=== PATIENT | male | born 1995 | race Caucasian/White ===

== ENCOUNTER 2017-12-23 09:22 | Emergency (ER) | payer OTHER, SELFPAY ==
--- NOTE | 2017-12-23 | DI.CT.S_ITS ---
PROCEDURE: CT ABDOMEN PELVIS W CON INDICATIONS: ABDOMINAL PAIN TECHNIQUE: After the administration of intravenous contrast, 5 mm thick sections acquired from the diaphragm to the symphysis. 5 mm coronal and sagittal reformats were acquired. For radiation dose reduction, the following was used: automated exposure control, adjustment of mA and/or kV according to patient size. COMPARISON: None. FINDINGS: Image quality: Excellent. ABDOMEN: Lung bases: Lung bases are clear. Heart size is normal. Solid organs: Liver is normal in size and enhancement. Gallbladder is unremarkable. Biliary system is non dilated. Pancreas enhances normally. Spleen is normal in size and enhancement. No adrenal nodules. Kidneys demonstrate normal size and enhancement, without hydronephrosis. Peritoneum and bowel: Bowel loops demonstrate normal wall thickness and caliber. The appendix is thin walled and gas filled. No free fluid or air. Nodes and vessels: No retroperitoneal or mesenteric adenopathy by size criteria. Aorta and inferior vena cava are normal in size. Miscellaneous: No ventral hernias. PELVIS: Genitourinary: Bladder wall thickness is normal. Miscellaneous: No inguinal hernias or adenopathy. Bones: No suspicious bony lesions. No vertebral body compression fractures. IMPRESSION: 1. No acute intra-abdominal findings. Normal appendix. Dictated by: Amrita Mclaughlin M.D. on 12/23/2017 at 13:58 Approved by: Amrita Mclaughlin M.D. on 12/23/2017 at 14:01
[2017-12-23 09:45] VITALS: BP 127/76; PULSE 57; RESP 18; TEMP 37; O2SAT 100; BMI 29.2
[2017-12-23 10:10] LABS: Add Manual Diff / Slide Review NO; Basophils Percent Auto 0.3 % (0-2); Hematocrit 43.6 % (41-53); Hemoglobin 14.9 g/dL (13.5-17.5); Lymphocytes Percent Auto 11.2 % (25-40); Mean Corpuscular HGB Conc 34.1 % (30-36); Mean Corpuscular Hemoglobin 31.2 PG (26-34); Mean Corpuscular Volume 91.6 fL (80-100); Monocytes Percent Auto 6.9 % (3-14); Neutrophils Absolute Auto 12000 /uL (3000-5900); Neutrophils Percent Auto 81.6 % (50-75); Platelet Count 293 X10^3/uL (150-400); Red Blood Cell Count 4.76 X10^6/uL (4.5-5.9); Red Cell Distribution Width 13.7 % (11.6-14.8); White Blood Cell Count 14.7 X10^3/uL (4.5-11.0)
[2017-12-23 10:20] LABS: Alanine Aminotransferase 20 IU/L (21-72); Albumin 4.7 g/dL (3.5-5.0); Albumin Globulin Ratio 1.4 (1.0-2.8); Alkaline Phosphatase 77 U/L (38-126); Aspartate Aminotransferase 19 IU/L (17-59); BUN Creatinine Ratio 16.3 (6-22); Bilirubin Total 0.8 mg/dL (0.2-1.3); Blood Urea Nitrogen 13 mg/dL (9-20); Calcium 9.6 mg/dL (8.4-10.2); Carbon Dioxide 27 mmol/L (22-32); Chloride 104 mmol/L (98-107); Estimated Glomerular Filt Rate > 60.0 mL/min (>60); Globulin 3.3 g/dL (1.7-4.1); Glucose 112 mg/dL (70-100); HEMOLYSIS 15 (0-50); Lipase 71 U/L (23-300); Potassium 3.3 mmol/L (3.4-5.1); Sodium 145 mmol/L (137-145)
[2017-12-23 10:54] VITALS: BP 117/77; PULSE 49; RESP 15; O2SAT 100
[2017-12-23] MEDS: ONDANSETRON 4 MG/2 ML INJ IV ×2 (11:13→15:21)
[2017-12-23] MEDS: SODIUM CHLORIDE 0.9% 1,000 ML 1000 ML IV (11:13)
[2017-12-23 12:00] VITALS: BP 99/58; PULSE 59; O2SAT 98
--- NOTE | 2017-12-23 12:21 | ED.ABDPAIN ---
HPI - Abdominal Pain <MASTER Chakraborty-BC - Last Filed: 12/23/17 15:45> General Chief Complaint: Abdominal Pain Stated Complaint: vomitting, stomach pain Time Seen by Provider: 12/23/17 12:10 Source: patient Mode of arrival: ambulatory Limitations: no limitations History of Present Illness HPI narrative: Patient presents with chief complaint of abdominal pain. It has been going on since . He also complains of chills, but no objective fevers. He complains of nausea and vomiting. He denies any diarrhea or constipation. Last movement was this morning. He denies any chest pain, shortness of breath. He states he is dehydrated. He states that this happened before in August, and that he follow up with his primary care provider. He states that his primary care provider discussed referring him to GI, and he has not contacted them again. He complains of of aching, pressure pain in his lower right quadrant and just below his umbilicus. He rates the pain a 4/10. He denies any urinary symptoms. Related Data Home Medications Medication Instructions Recorded Confirmed calcium carbonate [Tums] #0 06/06/17 promethazine 25 mg PO Q4HP PRN #0 06/08/17 Previous Rx's Medication Instructions Recorded ondansetron [Zofran ODT] 4 mg SUBLINGUAL Q6HP PRN #10 odt 06/05/17 ondansetron 4 mg PO TID PRN #10 tab 12/23/17 Allergies Allergy/AdvReac Type Severity Reaction Status Date / Time No Known Allergies Allergy Uncoded 07/18/17 12:11 Review of Systems <MADAN Chakraborty - Last Filed: 12/23/17 15:45> Review of Systems GENERAL: See HPI HEENT: Denies sinus pain, ear pain, sore throat, difficulty swallowing, dizziness. RESPIRATORY: Denies dyspnea, cough, wheezing, hemoptysis, sputum. CARDIOVASCULAR: Denies chest pain, palpitations, orthopnea, edema, GASTROINTESTINAL: See HPI : Denies dysuria, frequency, incontinence, hematuria, urinary retention. MUSCULOSKELETAL: denies weakness, joint pain, or bony pain SKIN: Denies rash, skin lesions, or other NEUROLOGIC: Denies weakness, headache, numbness, change in speech, confusion, seizures, incoordination. PSYCHIATRIC: No concerning psychosocial issues. 12 point review of systems is negative except for those stated above Exam <MADAN Chakraborty - Last Filed: 12/23/17 15:45> Narrative Exam Narrative: GENERAL: This is a well-nourished, well-developed patient, lying in bed covered in a blanket. HEAD: Atraumatic. Normocephalic. No temporal or scalp tenderness. EYES: Pupils equal round and reactive. Extraocular motions intact. No scleral icterus. No injection or drainage. ENT: Nose without bleeding, purulent drainage or septal hematoma. Throat without erythema, tonsillar hypertrophy or exudate. Uvula midline. Airway patent. NECK: Trachea midline. No JVD or lymphadenopathy. Supple, nontender, no meningeal signs. CARDIOVASCULAR: Regular rate and rhythm without murmurs, gallops, or rubs. RESPIRATORY: Clear to auscultation. Breath sounds equal bilaterally. No wheezes, rales, or rhonchi. GASTROINTESTINAL: Abdomen soft, active bowel sounds all 4 quadrants. Noted to have some guarding in the right lower quadrant and mid gastric area. No palpable hepatosplenomegaly. EXTREMITIES: No clubbing, cyanosis, or edema. No joint tenderness, effusion, or edema noted. BACK: Nontender without deformity or crepitance. No flank tenderness. NEURO: AOx3. SKIN: No rash or erythema. Initial Vital Signs Initial Vital Signs: Vital Signs Temperature 98.6 F 12/23/17 09:45 Pulse Rate 57 L 12/23/17 09:45 Respiratory Rate 18 12/23/17 09:45 Blood Pressure 127/76 12/23/17 09:45 Pulse Oximetry 100 12/23/17 09:45 <Jaky Alaniz DO - Last Filed: 12/26/17 07:38> Initial Vital Signs Initial Vital Signs: Vital Signs Temperature 98.6 F 12/23/17 09:45 Pulse Rate 57 L 12/23/17 09:45 Respiratory Rate 12/23/17 09:45 Blood Pressure 127/76 12/23/17 09:45 Pulse Oximetry 100 12/23/17 09:45 Course <MADAN Chakraborty - Last Filed: 12/23/17 15:45> Additional Information: I checked on the patient and his girlfriend several times throughout his stay. Orders Ordered: Discontinued Medications Sodium Chloride (Normal Saline 0.9%) 1,000 mls @ 1,000 mls/hr IV BOLUS ONE Stop: 12/23/17 12:10 Last Infusion: 12/23/17 13:00 Dose: 0 mls/hr Admin: 12/23/17 11:13 Dose: 1,000 mls/hr Sodium Chloride (Normal Saline 0.9%) 500 mls @ 1,000 mls/hr IV BOLUS ONE Stop: 12/23/17 12:46 Last Infusion: 12/23/17 13:41 Dose: 0 mls/hr Admin: 12/23/17 13:00 Dose: 1,000 mls/hr Ondansetron HCl (Zofran) 4 mg IV NOW ONE Stop: 12/23/17 11:13 Last Admin: 12/23/17 11:13 Dose: 4 mg Ondansetron HCl (Zofran) 4 mg IV NOW ONE Stop: 12/23/17 15:20 Last Admin: 12/23/17 15:21 Dose: 4 mg Potassium Chloride (Klor-Con M20) 40 meq PO NOW ONE Stop: 12/23/17 15:33 Last Admin: 12/23/17 15:30 Dose: 40 meq Vital Signs - 8 hr 12/23/17 09:45 12/23/17 10:54 12/23/17 12:00 Temperature 98.6 F Pulse Rate 57 L 49 L 59 L Respiratory Rate 18 15 Blood Pressure 127/76 Blood Pressure [Left Arm] 117/77 99/58 L Pulse Oximetry 100 100 98 12/23/17 13:13 12/23/17 14:45 Temperature Pulse Rate 49 L 48 L Respiratory Rate 16 Blood Pressure Blood Pressure [Left Arm] 114/70 122/70 Pulse Oximetry 97 98 <Jaky Alaniz DO - Last Filed: 12/26/17 07:38> Orders Ordered: Discontinued Medications Sodium Chloride (Normal Saline 0.9%) 1,000 mls @ 1,000 mls/hr IV BOLUS ONE Stop: 12/23/17 12:10 Last Infusion: 12/23/17 13:00 Dose: 0 mls/hr Admin: 12/23/17 11:13 Dose: 1,000 mls/hr Sodium Chloride (Normal Saline 0.9%) 500 mls @ 1,000 mls/hr IV BOLUS ONE Stop: 12/23/17 12:46 Last Infusion: 12/23/17 13:41 Dose: 0 mls/hr Admin: 12/23/17 13:00 Dose: 1,000 mls/hr Ondansetron HCl (Zofran) 4 mg IV NOW ONE Stop: 12/23/17 11:13 Last Admin: 12/23/17 11:13 Dose: 4 mg Ondansetron HCl (Zofran) 4 mg IV NOW ONE Stop: 12/23/17 15:20 Last Admin: 12/23/17 15:21 Dose: 4 mg Potassium Chloride (Klor-Con M20) 40 meq PO NOW ONE Stop: 12/23/17 15:33 Last Admin: 12/23/17 15:30 Dose: 40 meq Vital Signs - 8 hr 12/23/17 09:45 12/23/17 10:54 12/23/17 12:00 Temperature 98.6 F Pulse Rate 57 L 49 L 59 L Respiratory Rate 18 15 Blood Pressure 127/76 Blood Pressure [Left Arm] 117/77 99/58 L Pulse Oximetry 100 100 98 12/23/17 13:13 12/23/17 14:45 Temperature Pulse Rate 49 L 48 L Respiratory Rate 16 Blood Pressure Blood Pressure [Left Arm] 114/70 122/70 Pulse Oximetry 97 98 MDM - Abdominal Pain <MADAN Chakraborty - Last Filed: 12/23/17 15:45> Differential Diagnosis Differential diagnosis: Likely abdominal pain, acute appendicitis, diverticulitis and gastroenteritis Lab Data Attestation: I reviewed the patient's lab results. Result diagrams: 12/23/17 10:00 12/23/17 10:00 Lab Results 12/23/17 12/23/17 12/23/17 Range/Units 10:00 10:00 10:00 WBC 14.7 H (4.5-11.0) X10^3/uL RBC 4.76 (4.5-5.9) X10^6/uL Hgb 14.9 (13.5-17.5) g/dL Hct 43.6 (41-53) % MCV 91.6 (80-100) fL MCH 31.2 (26-34) PG MCHC 34.1 (30-36) % RDW 13.7 (11.6-14.8) % Plt Count 293 (150-400) X10^3/uL Neut % (Auto) 81.6 H (50-75) % Lymph % (Auto) 11.2 L (25-40) % [place] % (Auto) 6.9 (3-14) % Eos % (Auto) 0.0 L (2-4) % Baso % (Auto) 0.3 (0-2) % Neut # (Auto) 08571 H (4728-8149) /uL PT 13.7 H (10.1-12.7) SECONDS INR 1.3 (0.9-1.3) APTT 31 (26.4-36.2) SECONDS Sodium 145 (137-145) mmol/L Potassium 3.3 L (3.4-5.1) mmol/L Chloride 104 (98-107) mmol/L Carbon Dioxide 27 (22-32) mmol/L BUN 13 (9-20) mg/dL Creatinine 0.80 (0.66-1.25) mg/dL Estimated GFR > 60.0 (>60) mL/min BUN/Creatinine Ratio 16.3 (6-22) Glucose 112 H (70-100) mg/dL Calcium 9.6 (8.4-10.2) mg/dL Total Bilirubin 0.8 (0.2-1.3) mg/dL AST 19 (17-59) IU/L ALT 20 L (21-72) IU/L Alkaline Phosphatase 77 (38-126) U/L Total Protein 8.0 (6.3-8.2) g/dL Albumin 4.7 (3.5-5.0) g/dL Globulin 3.3 (1.7-4.1) g/dL Albumin/Globulin Ratio 1.4 (1.0-2.8) Amylase (30-110) U/L Lipase 71 (23-300) U/L Urine RBC (0-5/HPF) Urine WBC (0-5/HPF) Ur Squamous Epith Cells Urine Bacteria (None) Ur Culture Indicated? Micro UA Comment 12/23/17 12/23/17 Range/Units 10:00 14:30 WBC (4.5-11.0) X10^3/uL RBC (4.5-5.9) X10^6/uL Hgb (13.5-17.5) g/dL Hct (41-53) % MCV (80-100) fL MCH (26-34) PG MCHC (30-36) % RDW (11.6-14.8) % Plt Count (150-400) X10^3/uL Neut % (Auto) (50-75) % Lymph % (Auto) (25-40) % [place] % (Auto) (3-14) % Eos % (Auto) (2-4) % Baso % (Auto) (0-2) % Neut # (Auto) (0523-2970) /uL PT (10.1-12.7) SECONDS INR (0.9-1.3) APTT (26.4-36.2) SECONDS Sodium (137-145) mmol/L Potassium (3.4-5.1) mmol/L Chloride (98-107) mmol/L Carbon Dioxide (22-32) mmol/L BUN (9-20) mg/dL Creatinine (0.66-1.25) mg/dL Estimated GFR (>60) mL/min BUN/Creatinine Ratio (6-22) Glucose (70-100) mg/dL Calcium (8.4-10.2) mg/dL Total Bilirubin (0.2-1.3) mg/dL AST (17-59) IU/L ALT (21-72) IU/L Alkaline Phosphatase (38-126) U/L Total Protein (6.3-8.2) g/dL Albumin (3.5-5.0) g/dL Globulin (1.7-4.1) g/dL Albumin/Globulin Ratio (1.0-2.8) Amylase 63 (30-110) U/L Lipase (23-300) U/L Urine RBC None seen (0-5/HPF) Urine WBC None seen (0-5/HPF) Ur Squamous Epith Cells 0-1 /hpf Urine Bacteria None seen (None) Ur Culture Indicated? Cult not indicated Micro UA Comment Microscopic normal Potassium replaced with 40 mEq p.o. Point of care testing: Urine Dip Bedside Urine Glucose Negative Bedside Urine Bilirubin - Negative Bedside Urine Ketone ++ 40 Urine Specific [place] 1.010 Bedside Urine Occult Blood - Negative Bedside Urine pH 7.5 Bedside Urine Protein +/- 15 Bedside Urine Urobilinogen +/- 1mg Bedside Urine Nitrite - Negative Bedside Urine Leukocytes - Negative Esterase Imaging Data CT scan - abdomen: Radiologist's impression: [address] [address] [address] Scan Report Signed Patient: Catracho Tan MR#: [id number] : 1995 Acct:[id number] Age/Sex: 22 / M Date of Service: 12/23/17 Loc: ED Accession Number: [id number] Procedure: CT abdomen pelvis wo con Ordering Provider: Jaky Burciaga- PROCEDURE: CT ABDOMEN PELVIS W CON INDICATIONS: ABDOMINAL PAIN TECHNIQUE: After the administration of intravenous contrast, 5 mm thick sections acquired from the diaphragm to the symphysis. 5 mm coronal and sagittal reformats were acquired. For radiation dose reduction, the following was used: automated exposure control, adjustment of mA and/or kV according to patient size. COMPARISON: None. FINDINGS: Image quality: Excellent. ABDOMEN: Lung bases: Lung bases are clear. Heart size is normal. Solid organs: Liver is normal in size and enhancement. Gallbladder is unremarkable. Biliary system is non dilated. Pancreas enhances normally. Spleen is normal in size and enhancement. No adrenal nodules. Kidneys demonstrate normal size and enhancement, without hydronephrosis. Peritoneum and bowel: Bowel loops demonstrate normal wall thickness and caliber. The appendix is thin walled and gas filled. No free fluid or air. Nodes and vessels: No retroperitoneal or mesenteric adenopathy by size criteria. Aorta and inferior vena cava are normal in size. Miscellaneous: No ventral hernias. PELVIS: Genitourinary: Bladder wall thickness is normal. Miscellaneous: No inguinal hernias or adenopathy. Bones: No suspicious bony lesions. No vertebral body compression fractures. IMPRESSION: 1. No acute intra-abdominal findings. Normal appendix. Dictated by: Amrita Mclaughlin M.D. on 12/23/2017 at 13:58 Approved by: Amrita Mclaughlin M.D. on 12/23/2017 at 14:01 MDM Narrative Medical decision making narrative: The patient presents with a chief complaint of abdominal pain and nausea vomiting. Basic lab work was sent off, which is grossly normal. His potassium level slightly low, which was replaced in the emergency department. Given his pain and slight guarding on exam, I did obtain a CT scan. This came back within normal limits. He does have a history of abdominal pain, for which he has not followed up with GI. I encouraged him to follow up with his primary care provider in the next few days and as well as gave him precautions to come back to the emergency department including inability keep down liquids, sudden changes and pain or acute concerns. I encouraged and easy to digest I gave him a prescription of Zofran. He had no questions or concerns upon discharge. <Jaky Alaniz, DO - Last Filed: 12/26/17 07:38> Lab Data Lab Results 12/23/17 12/23/17 12/23/17 Range/Units 10:00 10:00 10:00 WBC 14.7 H (4.5-11.0) X10^3/uL RBC 4.76 (4.5-5.9) X10^6/uL Hgb 14.9 (13.5-17.5) g/dL Hct 43.6 (41-53) % MCV 91.6 (80-100) fL MCH 31.2 (26-34) PG MCHC 34.1 (30-36) % RDW 13.7 (11.6-14.8) % Plt Count 293 (150-400) X10^3/uL Neut % (Auto) 81.6 H (50-75) % Lymph % (Auto) 11.2 L (25-40) % [place] % (Auto) 6.9 (3-14) % Eos % (Auto) 0.0 L (2-4) % Baso % (Auto) 0.3 (0-2) % Neut # (Auto) 08318 H (6773-7406) /uL PT 13.7 H (10.1-12.7) SECONDS INR 1.3 (0.9-1.3) APTT 31 (26.4-36.2) SECONDS Sodium 145 (137-145) mmol/L Potassium 3.3 L (3.4-5.1) mmol/L Chloride 104 (98-107) mmol/L Carbon Dioxide 27 (22-32) mmol/L BUN 13 (9-20) mg/dL Creatinine 0.80 (0.66-1.25) mg/dL Estimated GFR > 60.0 (>60) mL/min BUN/Creatinine Ratio 16.3 (6-22) Glucose 112 H (70-100) mg/dL Calcium 9.6 (8.4-10.2) mg/dL Total Bilirubin 0.8 (0.2-1.3) mg/dL AST 19 (17-59) IU/L ALT 20 L (21-72) IU/L Alkaline Phosphatase 77 (38-126) U/L Total Protein 8.0 (6.3-8.2) g/dL Albumin 4.7 (3.5-5.0) g/dL Globulin 3.3 (1.7-4.1) g/dL Albumin/Globulin Ratio 1.4 (1.0-2.8) Amylase (30-110) U/L Lipase 71 (23-300) U/L Urine RBC (0-5/HPF) Urine WBC (0-5/HPF) Ur Squamous Epith Cells Urine Bacteria (None) Ur Culture Indicated? Micro UA Comment 12/23/17 12/23/17 Range/Units 10:00 14:30 WBC (4.5-11.0) X10^3/uL RBC (4.5-5.9) X10^6/uL Hgb (13.5-17.5) g/dL Hct (41-53) % MCV (80-100) fL MCH (26-34) PG MCHC (30-36) % RDW (11.6-14.8) % Plt Count (150-400) X10^3/uL Neut % (Auto) (50-75) % Lymph % (Auto) (25-40) % [place] % (Auto) (3-14) % Eos % (Auto) (2-4) % Baso % (Auto) (0-2) % Neut # (Auto) (8274-8996) /uL PT (10.1-12.7) SECONDS INR (0.9-1.3) APTT (26.4-36.2) SECONDS Sodium (137-145) mmol/L Potassium (3.4-5.1) mmol/L Chloride (98-107) mmol/L Carbon Dioxide (22-32) mmol/L BUN (9-20) mg/dL Creatinine (0.66-1.25) mg/dL Estimated GFR (>60) mL/min BUN/Creatinine Ratio (6-22) Glucose (70-100) mg/dL Calcium (8.4-10.2) mg/dL Total Bilirubin (0.2-1.3) mg/dL AST (17-59) IU/L ALT (21-72) IU/L Alkaline Phosphatase (38-126) U/L Total Protein (6.3-8.2) g/dL Albumin (3.5-5.0) g/dL Globulin (1.7-4.1) g/dL Albumin/Globulin Ratio (1.0-2.8) Amylase 63 (30-110) U/L Lipase (23-300) U/L Urine RBC None seen (0-5/HPF) Urine WBC None seen (0-5/HPF) Ur Squamous Epith Cells 0-1 /hpf Urine Bacteria None seen (None) Ur Culture Indicated? Cult not indicated Micro UA Comment Microscopic normal Point of care testing: Urine Dip Bedside Urine Glucose Negative Bedside Urine Bilirubin - Negative Bedside Urine Ketone ++ 40 Urine Specific [place] 1.010 Bedside Urine Occult Blood - Negative Bedside Urine pH 7.5 Bedside Urine Protein +/- 15 Bedside Urine Urobilinogen +/- 1mg Bedside Urine Nitrite - Negative Bedside Urine Leukocytes - Negative Esterase Discharge Plan Departure Patient Disposition: Home Clinical Impression: Nausea and vomiting, Abdominal pain Discharge Date/Time: 12/23/17 15:58 Interventions: ED Discharge Assessment Last Done: 12/23/17 15:57 Instructions: DI for Abdominal Pain-Adult, DI for Vomiting -- Adult, Nausea and Vomiting-Adult Activity Restrictions/Additional Instructions: Your imaging came back normal today. Please follow-up with your primary care provider. Please eat simple foods, take the nausea medication as needed, and push fluids. Come back to the emergency department if needed including unable to keep down fluids, severe fever, severe abdominal pain chest pain shortness of breath. Prescriptions: New ondansetron 4 mg tablet,disintegrating 4 mg PO TID PRN (Reason: nausea and vomiting) Qty: 10 RF: 0 No Action ondansetron [Zofran ODT] 4 MG tablet,disintegrating 4 mg Sublingual Q6HP PRNQty: 10 RF: 0 calcium carbonate [Tums] 500 MG tablet,chewable Qty: 0 RF: 0 promethazine 25 MG tablet 25 mg PO Q4HP PRNQty: 0 RF: 0 Referrals: Rodolfo Kidd DO [Primary Care Provider] - Stand Alone Forms: Work/School Restrictions <Jaky Alaniz DO - Last Filed: 12/26/17 07:38> Cosign ED Attending Cosignature Attestation: I was immediately available in the department for consultation. This documentation has been reviewed and I agree with assessment and plan. Supervised by Jaky Alaniz DO
--- NOTE | 2017-12-23 12:25 | ED_ITS ---
HPI - Abdominal Pain <MASTER Chakraborty-BC - Last Filed: 12/23/17 15:45> General Chief Complaint: Abdominal Pain Stated Complaint: vomitting, stomach pain Time Seen by Provider: 12/23/17 12:10 Source: patient Mode of arrival: ambulatory Limitations: no limitations History of Present Illness HPI narrative: Patient presents with chief complaint of abdominal pain. It has been going on since . He also complains of chills, but no objective fevers. He complains of nausea and vomiting. He denies any diarrhea or constipation. Last movement was this morning. He denies any chest pain, shortness of breath. He states he is dehydrated. He states that this happened before in August, and that he follow up with his primary care provider. He states that his primary care provider discussed referring him to GI, and he has not contacted them again. He complains of of aching, pressure pain in his lower right quadrant and just below his umbilicus. He rates the pain a 4/10. He denies any urinary symptoms. Related Data Home Medications Medication Instructions Recorded Confirmed calcium carbonate [Tums] #0 06/06/17 promethazine 25 mg PO Q4HP PRN #0 06/08/17 Previous Rx's Medication Instructions Recorded ondansetron [Zofran ODT] 4 mg SUBLINGUAL Q6HP PRN #10 odt 06/05/17 ondansetron 4 mg PO TID PRN #10 tab 12/23/17 Allergies Allergy/AdvReac Type Severity Reaction Status Date / Time No Known Allergies Allergy Uncoded 07/18/17 12:11 Review of Systems <MADAN Chakraborty - Last Filed: 12/23/17 15:45> Review of Systems GENERAL: See HPI HEENT: Denies sinus pain, ear pain, sore throat, difficulty swallowing, dizziness. RESPIRATORY: Denies dyspnea, cough, wheezing, hemoptysis, sputum. CARDIOVASCULAR: Denies chest pain, palpitations, orthopnea, edema, GASTROINTESTINAL: See HPI : Denies dysuria, frequency, incontinence, hematuria, urinary retention. MUSCULOSKELETAL: denies weakness, joint pain, or bony pain SKIN: Denies rash, skin lesions, or other NEUROLOGIC: Denies weakness, headache, numbness, change in speech, confusion, seizures, incoordination. PSYCHIATRIC: No concerning psychosocial issues. 12 point review of systems is negative except for those stated above Exam <MADAN Chakraborty - Last Filed: 12/23/17 15:45> Narrative Exam Narrative: GENERAL: This is a well-nourished, well-developed patient, lying in bed covered in a blanket. HEAD: Atraumatic. Normocephalic. No temporal or scalp tenderness. EYES: Pupils equal round and reactive. Extraocular motions intact. No scleral icterus. No injection or drainage. ENT: Nose without bleeding, purulent drainage or septal hematoma. Throat without erythema, tonsillar hypertrophy or exudate. Uvula midline. Airway patent. NECK: Trachea midline. No JVD or lymphadenopathy. Supple, nontender, no meningeal signs. CARDIOVASCULAR: Regular rate and rhythm without murmurs, gallops, or rubs. RESPIRATORY: Clear to auscultation. Breath sounds equal bilaterally. No wheezes , rales, or rhonchi. GASTROINTESTINAL: Abdomen soft, active bowel sounds all 4 quadrants. Noted to have some guarding in the right lower quadrant and mid gastric area. No palpable hepatosplenomegaly. EXTREMITIES: No clubbing, cyanosis, or edema. No joint tenderness, effusion, or edema noted. BACK: Nontender without deformity or crepitance. No flank tenderness. NEURO: AOx3. SKIN: No rash or erythema. Initial Vital Signs Initial Vital Signs: Vital Signs Temperature 98.6 F 12/23/17 09:45 Pulse Rate 57 L 12/23/17 09:45 Respiratory Rate 18 12/23/17 09:45 Blood Pressure 127/76 12/23/17 09:45 Pulse Oximetry 100 12/23/17 09:45 <Jaky Alanzi DO - Last Filed: 12/26/17 07:38> Initial Vital Signs Initial Vital Signs: Vital Signs Temperature 98.6 F 12/23/17 09:45 Pulse Rate 57 L 12/23/17 09:45 Respiratory Rate 12/23/17 09:45 Blood Pressure 127/76 12/23/17 09:45 Pulse Oximetry 100 12/23/17 09:45 Course <MADAN Chakraborty - Last Filed: 12/23/17 15:45> Additional Information: I checked on the patient and his girlfriend several times throughout his stay. Orders Ordered: Discontinued Medications Sodium Chloride (Normal Saline 0.9%) 1,000 mls @ 1,000 mls/hr IV BOLUS ONE Stop: 12/23/17 12:10 Last Infusion: 12/23/17 13:00 Dose: 0 mls/hr Admin: 12/23/17 11:13 Dose: 1,000 mls/hr Sodium Chloride (Normal Saline 0.9%) 500 mls @ 1,000 mls/hr IV BOLUS ONE Stop: 12/23/17 12:46 Last Infusion: 12/23/17 13:41 Dose: 0 mls/hr Admin: 12/23/17 13:00 Dose: 1,000 mls/hr Ondansetron HCl (Zofran) 4 mg IV NOW ONE Stop: 12/23/17 11:13 Last Admin: 12/23/17 11:13 Dose: 4 mg Ondansetron HCl (Zofran) 4 mg IV NOW ONE Stop: 12/23/17 15:20 Last Admin: 12/23/17 15:21 Dose: 4 mg Potassium Chloride (Klor-Con M20) 40 meq PO NOW ONE Stop: 12/23/17 15:33 Last Admin: 12/23/17 15:30 Dose: 40 meq Vital Signs - 8 hr 12/23/17 09:45 12/23/17 10:54 12/23/17 12:00 Temperature 98.6 F Pulse Rate 57 L 49 L 59 L Respiratory Rate 18 15 Blood Pressure 127/76 Blood Pressure [Left Arm] 117/77 99/58 L Pulse Oximetry 100 100 98 12/23/17 13:13 12/23/17 14:45 Temperature Pulse Rate 49 L 48 L Respiratory Rate 16 Blood Pressure Blood Pressure [Left Arm] 114/70 122/70 Pulse Oximetry 97 98 <Jaky Alaniz DO - Last Filed: 12/26/17 07:38> Orders Ordered: Discontinued Medications Sodium Chloride (Normal Saline 0.9%) 1,000 mls @ 1,000 mls/hr IV BOLUS ONE Stop: 12/23/17 12:10 Last Infusion: 12/23/17 13:00 Dose: 0 mls/hr Admin: 12/23/17 11:13 Dose: 1,000 mls/hr Sodium Chloride (Normal Saline 0.9%) 500 mls @ 1,000 mls/hr IV BOLUS ONE Stop: 12/23/17 12:46 Last Infusion: 12/23/17 13:41 Dose: 0 mls/hr Admin: 12/23/17 13:00 Dose: 1,000 mls/hr Ondansetron HCl (Zofran) 4 mg IV NOW ONE Stop: 12/23/17 11:13 Last Admin: 12/23/17 11:13 Dose: 4 mg Ondansetron HCl (Zofran) 4 mg IV NOW ONE Stop: 12/23/17 15:20 Last Admin: 12/23/17 15:21 Dose: 4 mg Potassium Chloride (Klor-Con M20) 40 meq PO NOW ONE Stop: 12/23/17 15:33 Last Admin: 12/23/17 15:30 Dose: 40 meq Vital Signs - 8 hr 12/23/17 09:45 12/23/17 10:54 12/23/17 12:00 Temperature 98.6 F Pulse Rate 57 L 49 L 59 L Respiratory Rate 18 15 Blood Pressure 127/76 Blood Pressure [Left Arm] 117/77 99/58 L Pulse Oximetry 100 100 98 12/23/17 13:13 12/23/17 14:45 Temperature Pulse Rate 49 L 48 L Respiratory Rate 16 Blood Pressure Blood Pressure [Left Arm] 114/70 122/70 Pulse Oximetry 97 98 MDM - Abdominal Pain <MADAN Chakraborty - Last Filed: 12/23/17 15:45> Differential Diagnosis Differential diagnosis: Likely abdominal pain, acute appendicitis, diverticulitis and gastroenteritis Lab Data Attestation: I reviewed the patient's lab results. Result diagrams: 12/23/17 10:00 12/23/17 10:00 Lab Results 12/23/17 12/23/17 12/23/17 Range/Units 10:00 10:00 10:00 WBC 14.7 H (4.5-11.0) X10^3/uL RBC 4.76 (4.5-5.9) X10^6/uL Hgb 14.9 (13.5-17.5) g/dL Hct 43.6 (41-53) % MCV 91.6 (80-100) fL MCH 31.2 (26-34) PG MCHC 34.1 (30-36) % RDW 13.7 (11.6-14.8) % Plt Count 293 (150-400) X10^3/uL Neut % (Auto) 81.6 H (50-75) % Lymph % (Auto) 11.2 L (25-40) % [place] % (Auto) 6.9 (3-14) % Eos % (Auto) 0.0 L (2-4) % Baso % (Auto) 0.3 (0-2) % Neut # (Auto) 42611 H (8628-9902) /uL PT 13.7 H (10.1-12.7) SECONDS INR 1.3 (0.9-1.3) APTT 31 (26.4-36.2) SECONDS Sodium 145 (137-145) mmol/L Potassium 3.3 L (3.4-5.1) mmol/L Chloride 104 (98-107) mmol/L Carbon Dioxide 27 (22-32) mmol/L BUN 13 (9-20) mg/dL Creatinine 0.80 (0.66-1.25) mg/dL Estimated GFR > 60.0 (>60) mL/min BUN/Creatinine Ratio 16.3 (6-22) Glucose 112 H (70-100) mg/dL Calcium 9.6 (8.4-10.2) mg/dL Total Bilirubin 0.8 (0.2-1.3) mg/dL AST 19 (17-59) IU/L ALT 20 L (21-72) IU/L Alkaline Phosphatase 77 (38-126) U/L Total Protein 8.0 (6.3-8.2) g/dL Albumin 4.7 (3.5-5.0) g/dL Globulin 3.3 (1.7-4.1) g/dL Albumin/Globulin Ratio 1.4 (1.0-2.8) Amylase (30-110) U/L Lipase 71 (23-300) U/L Urine RBC (0-5/HPF) Urine WBC (0-5/HPF) Ur Squamous Epith Cells Urine Bacteria (None) Ur Culture Indicated? Micro UA Comment 12/23/17 12/23/17 Range/Units 10:00 14:30 WBC (4.5-11.0) X10^3/uL RBC (4.5-5.9) X10^6/uL Hgb (13.5-17.5) g/dL Hct (41-53) % MCV (80-100) fL MCH (26-34) PG MCHC (30-36) % RDW (11.6-14.8) % Plt Count (150-400) X10^3/uL Neut % (Auto) (50-75) % Lymph % (Auto) (25-40) % [place] % (Auto) (3-14) % Eos % (Auto) (2-4) % Baso % (Auto) (0-2) % Neut # (Auto) (9446-3448) /uL PT (10.1-12.7) SECONDS INR (0.9-1.3) APTT (26.4-36.2) SECONDS Sodium (137-145) mmol/L Potassium (3.4-5.1) mmol/L Chloride (98-107) mmol/L Carbon Dioxide (22-32) mmol/L BUN (9-20) mg/dL Creatinine (0.66-1.25) mg/dL Estimated GFR (>60) mL/min BUN/Creatinine Ratio (6-22) Glucose (70-100) mg/dL Calcium (8.4-10.2) mg/dL Total Bilirubin (0.2-1.3) mg/dL AST (17-59) IU/L ALT (21-72) IU/L Alkaline Phosphatase (38-126) U/L Total Protein (6.3-8.2) g/dL Albumin (3.5-5.0) g/dL Globulin (1.7-4.1) g/dL Albumin/Globulin Ratio (1.0-2.8) Amylase 63 (30-110) U/L Lipase (23-300) U/L Urine RBC None seen (0-5/HPF) Urine WBC None seen (0-5/HPF) Ur Squamous Epith Cells 0-1 /hpf Urine Bacteria None seen (None) Ur Culture Indicated? Cult not indicated Micro UA Comment Microscopic normal Potassium replaced with 40 mEq p.o. Point of care testing: Urine Dip Bedside Urine Glucose Negative Bedside Urine Bilirubin - Negative Bedside Urine Ketone ++ 40 Urine Specific Wilder 1.010 Bedside Urine Occult Blood - Negative Bedside Urine pH 7.5 Bedside Urine Protein +/- 15 Bedside Urine Urobilinogen +/- 1mg Bedside Urine Nitrite - Negative Bedside Urine Leukocytes - Negative Esterase Imaging Data CT scan - abdomen: Radiologist's impression: [address] [address] [address] Scan Report Signed Patient: Catracho Tan MR#: [id number] : 1995 Acct:[id number] Age/Sex: 22 / M Date of Service: 12/23/17 Loc: ED Accession Number: [id number] Procedure: CT abdomen pelvis wo con Ordering Provider: Jaky Burciaga- PROCEDURE: CT ABDOMEN PELVIS W CON INDICATIONS: ABDOMINAL PAIN TECHNIQUE: After the administration of intravenous contrast, 5 mm thick sections acquired from the diaphragm to the symphysis. 5 mm coronal and sagittal reformats were acquired. For radiation dose reduction, the following was used: automated exposure control, adjustment of mA and/or kV according to patient size. COMPARISON: None. FINDINGS: Image quality: Excellent. ABDOMEN: Lung bases: Lung bases are clear. Heart size is normal. Solid organs: Liver is normal in size and enhancement. Gallbladder is unremarkable. Biliary system is non dilated. Pancreas enhances normally. Spleen is normal in size and enhancement. No adrenal nodules. Kidneys demonstrate normal size and enhancement, without hydronephrosis. Peritoneum and bowel: Bowel loops demonstrate normal wall thickness and caliber. The appendix is thin walled and gas filled. No free fluid or air. Nodes and vessels: No retroperitoneal or mesenteric adenopathy by size criteria. Aorta and inferior vena cava are normal in size. Miscellaneous: No ventral hernias. PELVIS: Genitourinary: Bladder wall thickness is normal. Miscellaneous: No inguinal hernias or adenopathy. Bones: No suspicious bony lesions. No vertebral body compression fractures. IMPRESSION: 1. No acute intra-abdominal findings. Normal appendix. Dictated by: Amrita Mclaughlin M.D. on 12/23/2017 at 13:58 Approved by: Amrita Mclaughlin M.D. on 12/23/2017 at 14:01 MDM Narrative Medical decision making narrative: The patient presents with a chief complaint of abdominal pain and nausea vomiting. Basic lab work was sent off, which is grossly normal. His potassium level slightly low, which was replaced in the emergency department. Given his pain and slight guarding on exam, I did obtain a CT scan. This came back within normal limits. He does have a history of abdominal pain, for which he has not followed up with GI. I encouraged him to follow up with his primary care provider in the next few days and as well as gave him precautions to come back to the emergency department including inability keep down liquids, sudden changes and pain or acute concerns. I encouraged and easy to digest I gave him a prescription of Zofran. He had no questions or concerns upon discharge. <Jaky Alaniz, DO - Last Filed: 12/26/17 07:38> Lab Data Lab Results 12/23/17 12/23/17 12/23/17 Range/Units 10:00 10:00 10:00 WBC 14.7 H (4.5-11.0) X10^3/uL RBC 4.76 (4.5-5.9) X10^6/uL Hgb 14.9 (13.5-17.5) g/dL Hct 43.6 (41-53) % MCV 91.6 (80-100) fL MCH 31.2 (26-34) PG MCHC 34.1 (30-36) % RDW 13.7 (11.6-14.8) % Plt Count 293 (150-400) X10^3/uL Neut % (Auto) 81.6 H (50-75) % Lymph % (Auto) 11.2 L (25-40) % [place] % (Auto) 6.9 (3-14) % Eos % (Auto) 0.0 L (2-4) % Baso % (Auto) 0.3 (0-2) % Neut # (Auto) 96009 H (0201-2763) /uL PT 13.7 H (10.1-12.7) SECONDS INR 1.3 (0.9-1.3) APTT 31 (26.4-36.2) SECONDS Sodium 145 (137-145) mmol/L Potassium 3.3 L (3.4-5.1) mmol/L Chloride 104 (98-107) mmol/L Carbon Dioxide 27 (22-32) mmol/L BUN 13 (9-20) mg/dL Creatinine 0.80 (0.66-1.25) mg/dL Estimated GFR > 60.0 (>60) mL/min BUN/Creatinine Ratio 16.3 (6-22) Glucose 112 H (70-100) mg/dL Calcium 9.6 (8.4-10.2) mg/dL Total Bilirubin 0.8 (0.2-1.3) mg/dL AST 19 (17-59) IU/L ALT 20 L (21-72) IU/L Alkaline Phosphatase 77 (38-126) U/L Total Protein 8.0 (6.3-8.2) g/dL Albumin 4.7 (3.5-5.0) g/dL Globulin 3.3 (1.7-4.1) g/dL Albumin/Globulin Ratio 1.4 (1.0-2.8) Amylase (30-110) U/L Lipase 71 (23-300) U/L Urine RBC (0-5/HPF) Urine WBC (0-5/HPF) Ur Squamous Epith Cells Urine Bacteria (None) Ur Culture Indicated? Micro UA Comment 12/23/17 12/23/17 Range/Units 10:00 14:30 WBC (4.5-11.0) X10^3/uL RBC (4.5-5.9) X10^6/uL Hgb (13.5-17.5) g/dL Hct (41-53) % MCV (80-100) fL MCH (26-34) PG MCHC (30-36) % RDW (11.6-14.8) % Plt Count (150-400) X10^3/uL Neut % (Auto) (50-75) % Lymph % (Auto) (25-40) % [place] % (Auto) (3-14) % Eos % (Auto) (2-4) % Baso % (Auto) (0-2) % Neut # (Auto) (3087-6863) /uL PT (10.1-12.7) SECONDS INR (0.9-1.3) APTT (26.4-36.2) SECONDS Sodium (137-145) mmol/L Potassium (3.4-5.1) mmol/L Chloride (98-107) mmol/L Carbon Dioxide (22-32) mmol/L BUN (9-20) mg/dL Creatinine (0.66-1.25) mg/dL Estimated GFR (>60) mL/min BUN/Creatinine Ratio (6-22) Glucose (70-100) mg/dL Calcium (8.4-10.2) mg/dL Total Bilirubin (0.2-1.3) mg/dL AST (17-59) IU/L ALT (21-72) IU/L Alkaline Phosphatase (38-126) U/L Total Protein (6.3-8.2) g/dL Albumin (3.5-5.0) g/dL Globulin (1.7-4.1) g/dL Albumin/Globulin Ratio (1.0-2.8) Amylase 63 (30-110) U/L Lipase (23-300) U/L Urine RBC None seen (0-5/HPF) Urine WBC None seen (0-5/HPF) Ur Squamous Epith Cells 0-1 /hpf Urine Bacteria None seen (None) Ur Culture Indicated? Cult not indicated Micro UA Comment Microscopic normal Point of care testing: Urine Dip Bedside Urine Glucose Negative Bedside Urine Bilirubin - Negative Bedside Urine Ketone ++ 40 Urine Specific [place] 1.010 Bedside Urine Occult Blood - Negative Bedside Urine pH 7.5 Bedside Urine Protein +/- 15 Bedside Urine Urobilinogen +/- 1mg Bedside Urine Nitrite - Negative Bedside Urine Leukocytes - Negative Esterase Discharge Plan Departure Patient Disposition: Home Clinical Impression: Nausea and vomiting, Abdominal pain Discharge Date/Time: 12/23/17 15:58 Interventions: ED Discharge Assessment Last Done: 12/23/17 15:57 Instructions: DI for Abdominal Pain-Adult, DI for Vomiting -- Adult, Nausea and Vomiting-Adult Activity Restrictions/Additional Instructions: Your imaging came back normal today. Please follow-up with your primary care provider. Please eat simple foods, take the nausea medication as needed, and push fluids. Come back to the emergency department if needed including unable to keep down fluids, severe fever, severe abdominal pain chest pain shortness of breath. Prescriptions: New ondansetron 4 mg tablet,disintegrating 4 mg PO TID PRN (Reason: nausea and vomiting) Qty: 10 RF: 0 No Action ondansetron [Zofran ODT] 4 MG tablet,disintegrating 4 mg Sublingual Q6HP PRNQty: 10 RF: 0 calcium carbonate [Tums] 500 MG tablet,chewable Qty: 0 RF: 0 promethazine 25 MG tablet 25 mg PO Q4HP PRNQty: 0 RF: 0 Referrals: Rodolfo Kidd DO [Primary Care Provider] - Stand Alone Forms: Work/School Restrictions <Jaky Alaniz DO - Last Filed: 12/26/17 07:38> Cosign ED Attending Cosignature Attestation: I was immediately available in the department for consultation. This documentation has been reviewed and I agree with assessment and plan. Supervised by Jaky Alaniz DO
[2017-12-23] MEDS: SODIUM CHLORIDE 0.9% 500 ML 1000 ML IV (13:00)
[2017-12-23 13:13] VITALS: BP 114/70; PULSE 49; O2SAT 97
[2017-12-23 13:41] LABS: INR 1.3 (0.9-1.3); Prothrombin Time 13.7 SECONDS (10.1-12.7)
[2017-12-23 13:42] LABS: Amylase 63 U/L (30-110)
[2017-12-23 13:43] LABS: PTT Partial Thromboplastin Tim 31 SECONDS (26.4-36.2)
[2017-12-23 14:45] VITALS: BP 122/70; PULSE 48; RESP 16; O2SAT 98
[2017-12-23 14:52] LABS: Bacteria Urine None Seen; RBC Urine None Seen (0-5/HPF); WBC Urine None Seen (0-5/HPF)
[2017-12-23 15:05] LABS: Culture Indicated Urine Cult Not Indicated; Squamous Epithelial Cell Urine 0-1 /HPF; Urine Comments Microscopic Normal
[2017-12-23] MEDS: POTASSIUM CHLORIDE 20 MEQ TAB 40 MEQ PO (15:30)
[2017-12-23 15:50] VITALS: BP 118/78; PULSE 49; O2SAT 100
== END 2017-12-23 15:58 | disposition home or self-care (01) ==
PROVIDERS: Emergency Medicine; Emergency Provider Nurse Practitioner Family; Family Provider Family Medicine; PCP Family Medicine
DX: R11.2 Nausea with vomiting, unspecified (principal); R10.9 Unspecified abdominal pain
CPT/HCPCS: 36591; 74176; 80053; 81003; 81015; 82150; 83690; 85025; 85610; 85730; 96361; 96374; 96376; 99284; J2405; Q9967

== ENCOUNTER 2022-01-11 11:23 | Emergency (ER) | payer OTHER, SELFPAY ==
[2022-01-11 11:32] VITALS: BP 139/84; PULSE 94; RESP 16; TEMP 36.9; O2SAT 100; BMI 34.3
--- NOTE | 2022-01-11 13:23 | ED.WOUNDLAC ---
HPI - Wound/Laceration General Chief Complaint: Wound/Laceration Stated Complaint: right leg lac- glass table broke and cut leg Time Seen by Provider: 01/11/22 13:12 History of Present Illness HPI narrative: This is a 26-year-old gentleman who presents to the emergency department with his father complaining of a laceration to his right lower leg which occurred just prior to arrival. He states that he was moving a glass table when the glass top fell off and broke, it cut him in the anterior arriaga of his right leg. He has approximately a 7 cm laceration/avulsion with difficulty controlling his bleeding. He states it was oozing and he is missing some skin so he is concerned it may not be closable. Patient states that he needs a tetanus update, he denies being on any anticoagulation. Denies any medical conditions. States that it is quite painful and he is mildly anxious. Patient tetanus UTD: No Related Data Home Medications Medication Instructions Recorded Confirmed calcium carbonate 200 mg calcium ##0 06/06/17 (500 mg) chewable tablet (Tums) promethazine 25 mg tablet 25 mg PO Q4HP PRN ##0 06/08/17 Previous Rx's Medication Instructions Recorded ondansetron 4 mg disintegrating 4 mg sublingual Q6HP PRN ##10 06/05/17 tablet (Zofran ODT) ondansetron 4 mg disintegrating 4 mg PO TID PRN nausea and 12/23/17 tablet vomiting #10 tabs doxycycline hyclate 100 mg capsule 100 mg PO BID 7 days #14 caps 01/11/22 mupirocin 2 % topical ointment 1 applic topical BID #15 grams 01/11/22 Allergies Allergy/AdvReac Type Severity Reaction Status Date / Time No Known Allergies Allergy Verified 01/11/22 13:20 Review of Systems Review of Systems Narrative: Review of systems is negative for acute abnormalities unless otherwise noted in HPI Exam Narrative Exam Narrative: Reviewed vitals signs and nursing notes. General: cooperative, comfortable, in no acute distress, well groomed MSK: moves all extremities, neurovascularly intact, no weakness, normal tone, no foreign body, no suspected tendon injury Skin: brisk capillary refill, without pallor or erythema, large gaping laceration, approximately 7 cm x 4 cm, mild venous oozing from both sides without pressure dressing. There is a small avulsion flap of skin which can be preserved for wound closure. Neuro: normal speech and cognition, A&O x3, ambulatory, clear speech Psych: mental status is grossly normal, congruent mood, normal affect, pleasant and cooperative Initial Vital Signs Initial Vital Signs: Vital Signs Temperature 98.4 F 01/11/22 11:32 Pulse Rate 94 H 01/11/22 11:32 Respiratory Rate 16 01/11/22 11:32 Blood Pressure 139/84 01/11/22 11:32 Pulse Oximetry 100 01/11/22 11:32 Oxygen Delivery Method 01/11/22 11:32 Procedures Laceration Repair Laceration 1: Site: lower extremity Side (If applicable): right Size (cm): 7 Description: flap and irregular Depth: simple, single layer Local Anesthetic: lidocaine 2% and with epi Amount of anesthesia used (mL): 7 Pre-repair: wound explored, irrigated extensively and deep structures intact Skin layer closed with: nylon Skin layer suture size: 4-0 and 5-0 Number of sutures: 21 Technique: simple, interrupted and horizontal mattress Subcutaneous layer closed with: vicryl Subcutaneous layer suture size: 4-0 Number of sutures: 3 Course Orders Ordered: Discontinued Medications Hydrocodone Bitart/Acetaminophen (Hydrocodone/Acet 5/325 Tablet) 1 tab PO NOW ONE Stop: 01/11/22 13:22 Last Admin: 01/11/22 13:36 Dose: 1 tab Documented By: JAILENE Bacitracin (Bacitracin Oint 0.9 Gm Pckt) 1 applic TOP NOW ONE Stop: 01/11/22 13:16 Last Admin: 01/11/22 13:35 Dose: 1 applic Documented By: JAILENE Diphtheria/Tetanus/Acell Pertussis (Tet,Diph,Pertuss(Acell),Vac/Pf 0.5 Ml Syringe) 0.5 ml IM .ONCE ONE Stop: 01/11/22 13:22 Last Admin: 01/11/22 13:35 Dose: 0.5 ml Documented By: JAILENE Ketorolac Tromethamine (Ketorolac 30 Mg/Ml Vial) 30 mg IM NOW ONE Stop: 01/11/22 13:22 Last Admin: 01/11/22 13:35 Dose: 30 mg Documented By: JAILENE Lidocaine/Epinephrine (Lidocaine 2% W/Epi Inj) 1 ml INJ INTRA-OP ONE Stop: 01/11/22 13:23 Last Admin: 01/11/22 13:44 Dose: 1 ml Documented By: JAILENE Lidocaine/Epinephrine (Lidocaine 1% W/Epi) 1 ml SUBCUT NOW ONE Stop: 01/11/22 13:23 Last Admin: 01/11/22 13:32 Dose: Not Given Documented By: JAILENE Ondansetron HCl (Ondansetron 4 Mg Odt) 4 mg SL NOW ONE Stop: 01/11/22 14:12 Last Admin: 01/11/22 14:19 Dose: 4 mg Documented By: AT Vital Signs Vital signs: Vital Signs - 8 hr 01/11/22 11:32 Temperature 98.4 F Pulse Rate 94 H Respiratory Rate 16 Blood Pressure 139/84 Pulse Oximetry 100 Oxygen Delivery Method Room Air MDM - Wound/Laceration MDM Narrative Medical decision making narrative: This is a 26-year-old male presents to the emergency department with a large laceration to his right lower extremity he sustained from a glass table top that fell, broke, and cut the anterior aspect of his right lower extremity. There was a small flap of skin which avulsed and wound was not contaminated, no foreign body, injury to deep structures. There was 1 arterial vessel which was bleeding on the medial aspect, pressure with lidocaine with epi was used and this stopped bleeding after quick clot was applied. Wound was thoroughly irrigated with normal saline. Deep sutures were placed with 4.0 Vicryl, wound edges were well approximated, skin was hydrated with normal saline and was stretch to close wound as best as possible. Patient tolerated well, without any high tension points, 24 sutures in total encouraged patient to use topical antibiotic ointment, he was given doxycycline because he is traveling in the next 3 days in case he has signs of infection I encouraged him to start taking it for its full course. Patient understands how to complete dressing changes and to use the mupirocin topical ointment. Encourage patient to have his sutures removed in 7-10 days and to return to emergency department for any worsening, if he has fever or chills, or any complication. His tetanus was updated today, he received Toradol, hydrocodone x1 for pain. Patient is appropriate and amenable to discharge home. Vital signs are stable on repeat examination is unremarkable. Patient has been informed of results. Patient has been given strict return to ER precautions for any new or worsening symptoms. Patient understands to follow up closely with outpatient providers as instructed. Patient understands plan and agrees to discharge home. All questions and concerns answered at this time. Discharge Plan Departure Patient Disposition: Home Clinical Impression: Laceration of leg, right Qualifiers: Encounter type: initial encounter Qualified Code(s): S81.811A - Laceration without foreign body, right lower leg, initial encounter Instructions: How to Care for a Laceration After Repair, DI for Laceration Repair Activity Restrictions/Additional Instructions: *You have been diagnosed with a large laceration to your right lower leg, today he received 24 sutures. Three of them were dissolvable, please have your sutures removed in 7-10 days, apply topical antibiotic ointment as needed, if you notice redness and swelling that is worsening, if it becomes more tender, please start taking the antibiotic. Please follow-up with your primary doctor if this looks infected. Thank you for your time, I hope this helps better soon. *What to do: *Please continue to take your regular medications as directed. [ ] New medication prescriptions sent to your pharmacy: [ ] [ ] New medication written as a paper prescription [ ] No new medications given *Please follow up with your primary care provider in 2-3 days, call for an appointment. Let them know you were seen in the Emergency Department and that we asked that you be seen for follow-up. We will electronically transmit a record of today's note if your PCP is in our system *If you do not have a primary care provider please contact [phone] to establish care with one of the [facility] primary care providers. *Return to Emergency Department if you should have any new, worsening, or concerning symptoms, such as [fever greater than 101F, chills, worsening pain, persistent vomiting or other bothersome symptoms]. Prescriptions: New mupirocin 2 % ointment 1 applic topical BID Qty: 15 0RF doxycycline hyclate 100 mg capsule 100 mg PO BID 7 Days Qty: 14 0RF No Action ondansetron [Zofran ODT] 4 MG tablet,disintegrating 4 mg Sublingual Q6HP PRNQty: 10 0RF calcium carbonate [Tums] 500 MG tablet,chewable Qty: 0 promethazine 25 MG tablet 25 mg PO Q4HP PRNQty: 0 ondansetron 4 mg tablet,disintegrating 4 mg PO TID PRN (Reason: nausea and vomiting) Qty: 10 0RF Referrals: Rodolfo Kidd DO [Primary Care Provider] - Visit Report Forms: Patient Portal/API
[2022-01-11] MEDS: KETOROLAC 30 MG/ML VIAL IM (13:35)
[2022-01-11] MEDS: TET,DIPH,PERTUSS(ACELL),VAC/PF 0.5 ML SYRINGE IM (13:35)
[2022-01-11] MEDS: BACITRACIN OINT 0.9 GM PCKT 1 APPLIC TOP (13:35)
[2022-01-11] MEDS: HYDROCODONE/ACET 5/325 TABLET 1 TAB PO (13:36)
[2022-01-11] MEDS: LIDOCAINE 2% W/EPI INJ 1 ML INJ (13:44)
[2022-01-11] MEDS: ONDANSETRON 4 MG ODT SL (14:19)
== END 2022-01-11 15:33 | disposition home or self-care (01) ==
PROVIDERS: Emergency Provider Nurse Practitioner Critical Care Medicine; Family Provider Family Medicine; PCP Family Medicine
DX: S81.811A Laceration without foreign body, right lower leg, initial encounter (principal); W25.XXXA Contact with sharp glass, initial encounter; Z23 Encounter for immunization
CPT/HCPCS: 12002; 90471; 96372; 99283; 99284; 90715; J1885

== ENCOUNTER → 2022-12-02 18:05 | Outpatient (CLI) | payer OTHER, SELFPAY ==
--- NOTE | 2022-12-02 18:07 | DI.RAD.S_ITS ---
PROCEDURE: XR FOOT RT MIN 3V INDICATIONS: Right foot injury TECHNIQUE: 3 views of the foot were acquired. COMPARISON: None. FINDINGS: Bones: No fractures or dislocations. No suspicious bony lesions. Soft tissues: No tibiotalar joint effusion. Achilles tendon appears normal. IMPRESSION: No displaced fractures are seen on these plain films. If there is focal tenderness, or other clinical concern for a fracture not seen on these images in this patient with a given history of trauma, please consider a dedicated CT or a short-term followup plain film series (in 1-2 weeks) for further evaluation. Dictated by: Shakeel Brantley M.D. on 12/02/2022 at 18:40 Approved by: Shakeel Brantley M.D. on 12/02/2022 at 18:40
== END ==
PROVIDERS: Family Provider Family Medicine; PCP Family Medicine; Referring Provider Nurse Practitioner Family; Visit Provider Nurse Practitioner Family
DX: M79.671 Pain in right foot (principal)
CPT/HCPCS: 73630